=== PATIENT | female | born 2000 | race Caucasian/White ===

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

== ENCOUNTER 2022-02-24 10:05 | Emergency (ER) | payer OTHER, SELFPAY ==
[2022-02-24 10:37] VITALS: BP 115/67; PULSE 96; RESP 18; TEMP 37.2; O2SAT 100
[2022-02-24 10:38] VITALS: BP 115/67; PULSE 96; RESP 18; TEMP 37.2; O2SAT 100
--- NOTE | 2022-02-24 10:44 | ED.URI ---
HPI - URI/Sore Throat General Chief Complaint: Upper Respiratory Infection Stated Complaint: headache,cough,congestion Time Seen by Provider: 02/24/22 10:44 Source: patient, RN notes reviewed and old records reviewed Mode of arrival: ambulatory Limitations: no limitations History of Present Illness HPI Narrative: 21-year-old female presents to [facility] congestion since Saturday. Cough started Saturday. Denies fevers. Had taken [place] and a decongestant 1 time yesterday. No other treatment prior to arrival Related Data Allergies Allergy/AdvReac Type Severity Reaction Status Date / Time No Known Allergies Allergy Verified 02/24/22 10:37 Review of Systems Review of Systems: All systems reviewed & are unremarkable except as noted in HPI and below Constitutional: Constitutional: Reports no additional constitutional complaints Eyes: Eyes: Reports no additional eye complaints ENT: Reports as per HPI and Reports nasal congestion Cardiovascular: Cardiovascular: Reports no additional cardiovascular complaints, Denies chest pain and Denies dyspnea Respiratory: Respiratory: Reports as per HPI, Reports chest congestion, Reports cough and Denies dyspnea Gastrointestinal: Gastrointestinal: Reports no additional gastrointestinal complaints, Denies abdominal pain, Denies nausea and Denies vomiting Musculoskeletal: Musculoskeletal: Reports no additional musculoskeletal complaints Integumentary/Breasts: Skin/Breast: Reports system reviewed and no additional complaints, except as docu Neurologic: Reports system reviewed and no additional complaints, except as documented Psychiatric: Psychiatric: Reports no additional psychiatric complaints Allergic/Immunologic: Allergic/Immunologic: Reports no additional allergic/immunologic complaints PMFSH Past Medical History Medical History Acute non-recurrent maxillary sinusitis Allergies BMI 26.0-26.9,adult BMI 27.0-27.9,adult Ear pain Encounter to establish care Otitis media in diseases classified elsewhere, right ear Overweight (BMI 25.0-29.9) Seasonal allergies Trigger finger, right middle finger Surgical History Surgical History History of tympanoplasty Family History Family History Father Depression Anxiety Mother Anxiety Depression Social History Social History Smoking status: Never smoker Alcohol intake: never Substance use: never Substance use type: does not use Gender identity (if verbalized by the patient): Female Comments At the time of my signature, I reviewed and agree with the nursing past medical, surgical, social, and family history. There is no relevant family history pertinent to the patient complaint. Exam Const: General: cooperative, healthy appearing, comfortable, no acute distress, well developed, alert, average body habitus and well nourished Nutritional Appearance: average body habitus and well nourished Orientation/consciousness: patient oriented x3 Limitations: no limitations HENMT: Head: normal to inspection Ears: hearing grossly normal bilaterally and external ears normal Face/Nose/Sinus: Normal external nose present, Normal nares present, Normal nasal mucous membranes and turbinates present and normal facial exam Face and sinus: normal facial exam Mouth: Yes Normal oral and palatal mucosa present, Yes lip normal and Yes moist mucous membranes Throat: posterior oropharynx normal and uvula midline Eyes: General: appearance normal, both eyes and all related structures Alignment and Position: alignment normal Periorbital: periorbital findings normal Conjunctivae: conjunctivae normal Pupils: Equal, round and reactive pupils present EOM: EOMs intact bilaterally Neck: Neck: normal visual inspection, full
== END 2022-02-24 11:16 | disposition home or self-care (01) ==
PROVIDERS: Emergency Provider Nurse Practitioner; PCP Nurse Practitioner Family
DX: J06.9 Acute upper respiratory infection, unspecified (principal); Z20.822 Contact with and (suspected) exposure to COVID-19
CPT/HCPCS: 87426; 87804; 99213; C9803; G0463

== ENCOUNTER → 2022-04-13 12:27 | Outpatient (CLI) | payer OTHER, SELFPAY ==
--- NOTE | ~2022-04-13 | XR_ITS ---
EXAMINATION: XR shoulder LT min 2V DATE: 04/13/2022 12:53 INDICATION: Posterior left shoulder pain TECHNIQUE: AP internally and externally rotated, AP oblique externally rotated and axillary views of the left shoulder were obtained. COMPARISON: None FINDINGS: Normal alignment. No fracture. Glenohumeral joint is normal. Acromioclavicular joint is normal. Soft tissues are unremarkable. Visualized portion of the left lung are clear. IMPRESSION: Negative left shoulder radiographs. Reviewed, dictated and finalized at location B. ONNEL SECURITY ASSISTANT
--- NOTE | ~2022-04-13 | XR_ITS ---
EXAMINATION: [id number] DATE: 04/13/2022 12:55 INDICATION: Pleurodynia. Posterior left upper rib pain TECHNIQUE: A frontal inspiratory view of the chest and 3 views of the left ribs were obtained. COMPARISON: Chest radiograph dated 04/06/2020 FINDINGS: No rib fractures identified. No focal airspace opacities, pulmonary edema, pleural effusion or pneumo thorax. IMPRESSION: 1. No rib fracture or acute cardiopulmonary disease. Reviewed, dictated and finalized at location B. ANTY ADMINISTRATOR
== END ==
PROVIDERS: PCP Nurse Practitioner Family; Visit Provider Nurse Practitioner Family
DX: R07.81 Pleurodynia (principal); M25.512 Pain in left shoulder
CPT/HCPCS: 71101; 73030

== ENCOUNTER 2022-05-25 11:48 | Emergency (ER) | payer OTHER, SELFPAY ==
[2022-05-25 12:05] VITALS: BP 103/63; PULSE 77; RESP 16; TEMP 36.3; O2SAT 100
--- NOTE | 2022-05-25 12:21 | ED.URI ---
HPI - URI/Sore Throat General Chief Complaint: Upper Respiratory Infection Stated Complaint: sorerthroat,congestion Time Seen by Provider: 05/25/22 12:21 Source: patient, RN notes reviewed and old records reviewed Mode of arrival: ambulatory Limitations: no limitations History of Present Illness HPI Narrative: 21-year-old female presents to the [facility] with complaints of congestion x1 week and sore throat that started 2 days ago. 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 No treatment prior to arrival Related Data Home Medications Medication Instructions Recorded Confirmed levonorgestrel 17.5 mcg/24 hrs See Rx Instructions .Route .COMPLEX 05/25/22 05/25/22 (5yrs) 19.5mg intrauterine device (Kyleena) Allergies Allergy/AdvReac Type Severity Reaction Status Date / Time No Known Allergies Allergy Verified 05/25/22 12:09 Review of Systems Review of Systems: All systems reviewed & are unremarkable except as noted in HPI and below Constitutional: Constitutional: Reports no additional constitutional complaints Eyes: Eyes: Reports no additional eye complaints ENT: Reports as per HPI, Reports nasal congestion and Reports sore throat Cardiovascular: Cardiovascular: Reports no additional cardiovascular complaints, Denies chest pain and Denies dyspnea Respiratory: Respiratory: Reports no additional respiratory complaints, Denies chest congestion, Denies cough and Denies dyspnea Gastrointestinal: Gastrointestinal: Reports no additional gastrointestinal complaints, Denies abdominal pain, Denies nausea and Denies vomiting Musculoskeletal: Musculoskeletal: Reports no additional musculoskeletal complaints Integumentary/Breasts: Skin/Breast: Reports system reviewed and no additional complaints, except as docu Neurologic: Reports system reviewed and no additional complaints, except as documented Psychiatric: Psychiatric: Reports no additional psychiatric complaints Allergic/Immunologic: Allergic/Immunologic: Reports no additional allergic/immunologic complaints [facility] Past Medical History Medical History Acute non-recurrent maxillary sinusitis Acute otitis media, right Allergies BMI 26.0-26.9,adult BMI 27.0-27.9,adult Ear pain Encounter to establish care Left shoulder pain Otitis media in diseases classified elsewhere, right ear Overweight (BMI 25.0-29.9) Rib pain on left side Seasonal allergies Trigger finger, right middle finger Surgical History Surgical History History of tympanoplasty Family History Family History Father Depression Anxiety Mother Anxiety Depression Social History Social History Smoking status: Never smoker Alcohol intake: never Substance use: never Substance use type: does not use Lack of Transportation: No Lack of Food: Never True Current Housing: I Have Housing Concerned About Future Housing: No Difficulty Paying Gas/Electric Bills: No Difficulty Paying for Meds: No Currently Unemployed: No Education: Trade/Vocational Certificate Difficulty w/ Childcare or Family Care: No Occupation/Education: student Gender identity (if verbalized by the patient): Female Comments At the time of my signature, I reviewed and agree with the nursing past medical, surgical, social, and family history. There is no relevant family history pertinent to the patient complaint. Exam Const: General: cooperative, healthy appearing, comfortable, no acute distress, well developed, alert and well nourished Nutritional Appearance: well nourished Orientation/consciousness: patient oriented x3 Limitations: no limitations HENMT: Head: normal to inspection Ears: hearing grossly normal bam
== END 2022-05-25 12:40 | disposition home or self-care (01) ==
PROVIDERS: Emergency Provider Nurse Practitioner; PCP Nurse Practitioner Family
DX: J02.8 Acute pharyngitis due to other specified organisms (principal)
CPT/HCPCS: 87081; 87880; 99213; G0463

== ENCOUNTER 2022-06-20 11:27 | Emergency (ER) | payer OTHER, SELFPAY ==
--- NOTE | 2022-06-20 11:32 | ED.EAR ---
HPI - Ear Problem General Chief complaint: Upper Respiratory Infection Stated complaint: rt ear pain,congestion Time Seen by Provider: 06/20/22 11:39 Source: patient Mode of arrival: ambulatory Limitations: no limitations History of Present Illness HPI Narrative: 21 y/o female presented for c/o right ear pain for 3 days. States she hears 'thunder' when tilting her head. Pt has had problems with her ears since childhood, has had PE tubes and tympanoplasties in her Right ear twice with last surgery in the 5th grade. Endorses sinus congestion for 3 days with decreased taste. Taking Sudafed for symptoms. Also reports 'stomach flu' 4 days ago. Denies tinnitus, dizziness, body aches, sob, wheezing, n/v/d/f/c at this time. 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 MD Complaint: ear pain Related Data Home Medications Medication Instructions Recorded Confirmed levonorgestrel 17.5 mcg/24 hrs See Rx Instructions .Route .COMPLEX 05/25/22 06/20/22 (5yrs) 19.5mg intrauterine device (Kyleena) Allergies Allergy/AdvReac Type Severity Reaction Status Date / Time No Known Allergies Allergy Verified 06/20/22 11:42 Review of Systems Review of Systems: ROS per HPI All systems reviewed & are unremarkable except as noted in HPI and below PMFSH Past Medical History Medical History Acute non-recurrent maxillary sinusitis Acute otitis media, right Allergies BMI 26.0-26.9,adult BMI 27.0-27.9,adult Ear pain Encounter to establish care Left shoulder pain Otitis media in diseases classified elsewhere, right ear Overweight (BMI 25.0-29.9) Rib pain on left side Seasonal allergies Trigger finger, right middle finger Surgical History Surgical History History of tympanoplasty Family History Family History Father Depression Anxiety Mother Anxiety Depression Social History Social History Smoking status: Never smoker Alcohol intake: never Substance use: never Substance use type: does not use Lack of Transportation: No Lack of Food: Never True Current Housing: I Have Housing Concerned About Future Housing: No Difficulty Paying Gas/Electric Bills: No Difficulty Paying for Meds: No Currently Unemployed: No Education: Trade/Vocational Certificate Difficulty w/ Childcare or Family Care: No Occupation/Education: student Gender identity (if verbalized by the patient): Female Comments At time of signature, agree with nursing past medical, surgical, social and family history. There is no relevant family history pertinent to the presenting complaint Exam Narrative: GENERAL: Well-appearing, well-nourished, and in no acute distress. HEAD: Normocephalic EYES: PERRLA, conjunctivae clear ENT: Nares clear. Mucous membranes moist. Nasal congestion. Left TM pearly beavers with dull light reflex; Right TM erythematous with purulent effusion, no tragal tenderness. Oropharynx without erythema or tonsillar enlargement. NECK: Supple. No lymphadenopathy CHEST: Clear to auscultation, breath sounds equal. HEART: Regular rate and rhythm. No murmur heard. SKIN: Warm, dry, no rash. NEURO: Alert and oriented x3. PSYCH: Normal mood and affect Course Course Emergency Course: Patient is aware of diagnosis, understands and agrees to treatment plan. Anticipatory guidance given. Patient agrees to follow-up as directed and is aware of reasons to seek care at the emergency department. Portions of this record may have been created with voice recognition software Level of Care: Express Care Visit Vital Signs Vital signs: Vital Signs Temperature 97.6 F 06/20/22 11:34 Pulse Rate 90 06/20/22 11:34 Respiratory Rate 16 06/20/22 11:34 Blood Pressure 110/63 06/20/22 11:34
[2022-06-20 11:34] VITALS: BP 110/63; PULSE 90; RESP 16; TEMP 36.4; O2SAT 99
== END 2022-06-20 12:16 | disposition home or self-care (01) ==
PROVIDERS: Emergency Provider Nurse Practitioner Family; PCP Nurse Practitioner Family
DX: H66.91 Otitis media, unspecified, right ear (principal); Z20.822 Contact with and (suspected) exposure to COVID-19
CPT/HCPCS: 87426; 99213; C9803; G0463

== ENCOUNTER 2022-06-25 08:00 | Outpatient (RCR) | payer OTHER, SELFPAY ==
--- NOTE | 2022-04-30 11:54 | PTOPEVAL1 ---
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 She is R handed. Reports some tingling with the pain, but no numbness or weakness. Prior to therapy saw a doctor and they thought it was a rib out of place. Reported Pain Level Pain Score 4: Self Report Assessment PT Clinical Summary Mahogany is a 21 year old female coming into the clinic with L shoulder/scapular pain. She presents with weakness in her scapular stabilizers along with her rotator cuff. She has grossly 10 degrees less active range of motion in her L shoulder compared to her R shoulder. She has a positive empty can and Fitzpatrick-Semaj test. Physical therapy will work on improving strength and range of motion of the L shoulder joint along with manual and modalities to help with pain control. Plan of Care Interventions Electrical Stimulation,Gait Training,Hot Pack/Cold Pack,Manual Therapy,Neuro Re-education,Patient/ Caregiver Education,Therapeutic Activities, Therapeutic Exercise,Ultrasound Other Interventions taping PT Services Indicated Yes Treatment Frequency and 1-2x/week for 4 weeks Duration These treatments will address the objective and functional deficits as defined above. The patient will be advanced safely and appropriately in order for the patient to progress towards his/her prior level of function. Additional exercises will be introduced and as well as a comprehensive home exercise program upon discharge, if needed, ?to ensure carryover of functional gains achieved in the clinic. This treatment plan has been reviewed and agreement upon by the patient.
--- NOTE | 2022-05-28 10:25 | PTOPREEVAL ---
Assessment and note entered by Martin Siegel, PT Evaluation Information Assessment Status Re-evaluation Diagnosis Pain in left shoulder Onset chronic three years ago Subjective Information Patient reports she is still having issues with the shoulder mainly discomfort after in the same position for extended period of time. 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 Reported Pain Level Pain Score 5: Self Report Assessment PT Clinical Summary Mahogany is a 21 year old coming in with L shoulder pain. She has met her shoulder strengthening goal , but still needs to get stronger in her her scapula and improve range of motion. Her pain although she reports it feeling better is at a higher level than reported in the initial evaluation. Patient states her doctor mentioned getting an MRI, which this therapist would recommend to make sure we are focused in the right area and providing the correct therapy plan of care. Recommend further therapy to work on scapular strengthening and shoulder range of motion along with modalities and manual therapy for pain control. Plan of Care Interventions Electrical Stimulation,Gait Training,Hot Pack/Cold Pack,Manual Therapy,Neuro Re-education,Patient/ Caregiver Education,Therapeutic Activities, Therapeutic Exercise,Ultrasound Other Interventions taping PT Services Indicated Yes These treatments will address the objective and functional deficits as defined above. The patient will be advanced safely and appropriately in order for the patient to progress towards his/her prior level of function. Additional exercises will be introduced and as well as a comprehensive home exercise program upon discharge, if needed, ?to ensure carryover of functional gains achieved in the clinic. This treatment plan has been reviewed and agreement upon by the patient.
--- NOTE | 2022-06-13 08:58 | PCPTNOTE ---
Patient unable to be seen on 06/12/22 secondary to staff sickness.
--- NOTE | 2022-06-25 08:45 | PTOPDC ---
Assessment and note entered by Martin Siegel, PT Evaluation Information Assessment Status Discharge Diagnosis Pain in L shoulder Onset chronic three years ago Subjective Information Patient reports feeling better overall, but still having issues. 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 Wishes to try to get an MRI to better understand what is going on with the shoulder as it is still giving her troubles and feeling like it grinds a lot. Reported Pain Level Pain Score 1: Self Report Assessment PT Clinical Summary Mahogany is a 21 year old female coming into the clinic with a diagnosis of L shoulder pain. She was evaluated on 04/30/22 and attended 14 visits. She was unable to meet her pain, strength or shoulder flexion goals, but met her shoulder abduction range of motion and work goals. I think the patient's request for an MRI appears like a good idea to see what is preventing further improvement and if possible see about how to focus further physical therapy treatments if warranted, but for now discharge from skilled physical therapy with HEP and get MRI if okay with doctor. Plan of Care PT Services Indicated No
== END 2022-06-25 10:53 | disposition home or self-care (01) ==
LOC: ANHPT 08:00
PROVIDERS: PCP Nurse Practitioner Family; Visit Provider Nurse Practitioner Family
DX: M25.512 Pain in left shoulder (principal)
CPT/HCPCS: 97014; 97110; 97112; 97140; 97161; G0283

== ENCOUNTER 2022-10-08 13:05 | Outpatient (CLI) | payer OTHER, SELFPAY ==
[2022-10-08 14:10] LABS: Alanine Aminotransferase 20 U/L (6-35); Albumin Level 4.3 g/dL (3.5-5.1); Alkaline Phosphatase 38 U/L (38-126); Anion Gap 5 mmol/L (8-16); Aspartate Amino Transferase 31 U/L (14-36); Bilirubin,Total 0.3 mg/dL (0.2-1.3); Blood Urea Nitrogen 8 mg/dL (7-17); Calcium 8.8 mg/dL (8.4-10.2); Carbon Dioxide 30 mmol/L (22-30); Chloride 102 mmol/L (98-107); Estimated Glomerular Filt Rate > 60; Glucose 95 mg/dL (65-110); Potassium 3.9 mmol/L (3.4-5.0); Sodium 137 mmol/L (137-145)
[2022-10-08 15:25] LABS: Hematocrit 40.2 % (37.0-47.0); Hemoglobin 12.8 g/dL (12.0-15.0); Mean Corpuscular HGB Conc 31.8 g/dl (32-36); Mean Corpuscular Hemoglobin 29.4 pg (26-34); Mean Corpuscular Volume 92.2 fl (80-100); Mean Platelet Volume 11.3 fl (7.4-10.4); Platelet Count Result 272 k/mm3 (150-375); Red Blood Count 4.36 M/mm3 (4.2-5.4); White Blood Count 7.2 K/mm3 (4.5-10.0)
== END 2022-10-08 13:06 | disposition home or self-care (01) ==
LOC: ANHLAB 13:08
PROVIDERS: PCP Nurse Practitioner Family; Visit Provider Nurse Practitioner Family
DX: K59.00 Constipation, unspecified (principal); K92.1 Melena
CPT/HCPCS: 36415; 80053; 84443; 85027

== ENCOUNTER 2022-10-22 00:27 | Day surgery (SDC) | payer OTHER, SELFPAY ==
[2022-10-10 14:51] VITALS: BMI 26.5
[2022-10-22 11:18] VITALS: BP 110/66; PULSE 86; RESP 16; TEMP 36.3; O2SAT 100
--- NOTE | 2022-10-22 11:53 | PM.HPGS ---
History of Present Illness History of Present Illness Consent: Risks, benefits, and alternatives have been discussed and questions answered. Patient agrees to proceed with procedure. Chief complaint: constipation, melena Narrative: Mahogany Ambriz is a 22 year old female Who is here for investigation of rectal bleeding. She has long history of having difficulty with constipation. Frequently she will pass blood and at times has rectal discomfort with that. Review of Systems Review of Systems: All systems reviewed & are unremarkable except as noted in HPI and below PMFSH Past Medical History Medical History Acute non-recurrent maxillary sinusitis Acute otitis media, right Allergies Blood in stool BMI 26.0-26.9,adult BMI 27.0-27.9,adult Constipation Ear pain Encounter to establish care Left shoulder pain Otitis media in diseases classified elsewhere, right ear Overweight (BMI 25.0-29.9) Rib pain on left side Seasonal allergies Trigger finger, right middle finger Surgical History Surgical History History of tympanoplasty Family History Family History Father Depression Anxiety Mother Anxiety Depression Social History Social History Smoking status: Never smoker Alcohol intake: never Substance use: never Substance use type: does not use Lack of Transportation: No Lack of Food: Never True Current Housing: I Have Housing Concerned About Future Housing: No Difficulty Paying Gas/Electric Bills: No Difficulty Paying for Meds: No Currently Unemployed: No Education: Trade/Vocational Certificate Difficulty w/ Childcare or Family Care: No Living arrangements: with family Occupation/Education: student Gender identity (if verbalized by the patient): Female Spiritual care concerns: No Meds Home Medications and Allergies Home Medications Medication Instructions Recorded Confirmed Type cetirizine 10 mg tablet (Zyrtec) 10 mg PO DAILY PRN Allergy Symptoms 10/15/22 10/22/22 History Allergies Allergy/AdvReac Type Severity Reaction Status Date / Time No Known Allergies Allergy Verified 10/22/22 11:17 Vital Signs Vital Signs - 24 hr 10/22/22 11:18 Temperature 36.3 C L Pulse Rate 86 Respiratory Rate 16 Blood Pressure 110/66 Pulse Oximetry 100 Oxygen Delivery Room Air Exam Const: General: alert Orientation/consciousness: patient oriented x3 Resp: Auscultation: clear to auscultation bilaterally Cardio: Rhythm: regular rhythm GI: GI Palp: Yes Soft to palpation and No Tenderness to palpation present (GI) Neuro: General: patient oriented x3 Assessment and Plan Assessment and plan (1) Blood in stool: Code(s): K92.1 - Melena Status: Acute Assessment and Plan: Colonoscopy with possible biopsy or polypectomy or cautery or injection of substances.
[2022-10-22] MEDS: LACTATED RINGERS 1,000 ML 150 ML IV CONT (12:00)
--- NOTE | 2022-10-22 12:53 | WPDANESEPPF ---
Anes - Initial Pre Proc Eval Procedure: Operation Date: 10/22/22 12:30 Proposed Procedures p Colonoscopy - Alejandro Draper MD Date/Time: 10/22/22 12:53 Surgeon: Alejandro Draper MD Pre Op Diagnosis: constipation, melena Patient Data Age: 22 Gender: F Height: 1.61 m Weight: 69.1 kg Last Vital Signs Temp 36.3 C L 10/22/22 11:18 Pulse 86 10/22/22 11:18 Resp 16 10/22/22 11:18 BP 110/66 10/22/22 11:18 Pulse Ox 100 10/22/22 11:18 O2 Del Method Room Air 10/22/22 11:18 Allergies Allergy/AdvReac Type Severity Reaction Status Date / Time No Known Allergies Allergy Verified 10/22/22 11:17 Home Medications Medication Instructions Recorded Confirmed Type cetirizine 10 mg tablet (Zyrtec) 10 mg PO DAILY PRN Allergy Symptoms 10/15/22 10/22/22 History Patient hx anesthesia problems: none Family hx anesthesia problems: none Results Review: All pre-operative results and documents have been reviewed as part of the pre-operative evaluation. [facility] Past Medical History Medical History Acute non-recurrent maxillary sinusitis Acute otitis media, right Allergies Blood in stool BMI 26.0-26.9,adult BMI 27.0-27.9,adult Constipation Ear pain Encounter to establish care Left shoulder pain Otitis media in diseases classified elsewhere, right ear Overweight (BMI 25.0-29.9) Rib pain on left side Seasonal allergies Trigger finger, right middle finger Surgical History Surgical History History of tympanoplasty Family History Family History Father Depression Anxiety Mother Anxiety Depression Social History Social History Smoking status: Never smoker Alcohol intake: never Substance use: never Substance use type: does not use Lack of Transportation: No Lack of Food: Never True Current Housing: I Have Housing Concerned About Future Housing: No Difficulty Paying Gas/Electric Bills: No Difficulty Paying for Meds: No Currently Unemployed: No Education: Trade/Vocational Certificate Difficulty w/ Childcare or Family Care: No Living arrangements: with family Occupation/Education: student Gender identity (if verbalized by the patient): Female Spiritual care concerns: No Anes - Eval Final PreProcedure Day of Procedure 10/22/22 12:53 Patient weight: overweight Heart: regular rate and rhythm Lungs: clear to auscultation Airway: Mallampati scale class II Neurological: alert and oriented Last oral intake: >/= 8 hours ASA classification: II Emergent: no Anesthetic plan: proceed Anesthesia type and monitoring: general GIVS and standard monitoring Results Review: All pre-operative results and documents have been reviewed as part of the pre-operative evaluation. Informed Consent: The patient's anesthetic plan and its attendant risks and benefits were discussed with the patient/family/POA. Questions were solicited and answers provided to the satisfaction of the patient/family/POA.
[2022-10-22 13:13] VITALS: BP 91/50; PULSE 90; RESP 16; O2SAT 100
[2022-10-22 13:23] VITALS: BP 101/66; PULSE 73; RESP 15; O2SAT 100
[2022-10-22 13:33] VITALS: BP 105/62; PULSE 72; RESP 14; O2SAT 100
== END 2022-10-22 13:48 | disposition home or self-care (01) ==
PROVIDERS: PCP Nurse Practitioner Family; Visit Provider Internal Medicine Gastroenterology
PROC: 0DJD8ZZ Inspection of Lower Intestinal Tract, Via Natural or Artificial Opening Endoscopic (ICD-10-PCS; CPT 45378; principal; 2022-10-22 12:30)
DX: K64.8 Other hemorrhoids (principal); K59.00 Constipation, unspecified; K92.1 Melena
CPT/HCPCS: 45378; J2704; J7120

== ENCOUNTER 2022-11-02 18:36 | Emergency (ER) | payer OTHER, SELFPAY ==
--- NOTE | 2022-11-02 18:42 | ED.URI ---
HPI - URI/Sore Throat General Chief Complaint: Ear Stated Complaint: rt ear pain Time Seen by Provider: 11/02/22 18:42 Source: patient, RN notes reviewed and old records reviewed Mode of arrival: ambulatory Limitations: no limitations History of Present Illness HPI Narrative: 22-year-old female presents to the [facility] with complaints of right ear pain for 1 week. Has been taking Zyrtec intermittently. No other treatment prior to arrival. Denies any other symptoms Related Data Home Medications Medication Instructions Recorded Confirmed cetirizine 10 mg tablet (Zyrtec) 10 mg PO DAILY PRN Allergy Symptoms 10/15/22 11/02/22 Allergies Allergy/AdvReac Type Severity Reaction Status Date / Time No Known Allergies Allergy Verified 11/02/22 18:50 Review of Systems Review of Systems: All systems reviewed & are unremarkable except as noted in HPI and below Constitutional: Constitutional: Reports no additional constitutional complaints Eyes: Eyes: Reports no additional eye complaints ENT: Reports as per HPI and Reports otalgia (Right) Cardiovascular: Cardiovascular: Reports no additional cardiovascular complaints, Denies chest pain and Denies dyspnea Respiratory: Respiratory: Reports no additional respiratory complaints, Denies chest congestion, Denies cough and Denies dyspnea Gastrointestinal: Gastrointestinal: Reports no additional gastrointestinal complaints, Denies abdominal pain, Denies nausea and Denies vomiting Musculoskeletal: Musculoskeletal: Reports no additional musculoskeletal complaints Integumentary/Breasts: Skin/Breast: Reports system reviewed and no additional complaints, except as docu Neurologic: Reports system reviewed and no additional complaints, except as documented Psychiatric: Psychiatric: Reports no additional psychiatric complaints Allergic/Immunologic: Allergic/Immunologic: Reports no additional allergic/immunologic complaints [facility] Past Medical History Medical History Acute non-recurrent maxillary sinusitis Acute otitis media, right Allergies Blood in stool BMI 26.0-26.9,adult BMI 27.0-27.9,adult Constipation Ear pain Encounter to establish care Left shoulder pain Otitis media in diseases classified elsewhere, right ear Overweight (BMI 25.0-29.9) Rib pain on left side Seasonal allergies Trigger finger, right middle finger Surgical History Surgical History History of tympanoplasty Family History Family History Father Depression Anxiety Mother Anxiety Depression Social History Social History Smoking status: Never smoker Alcohol intake: never Substance use: never Substance use type: does not use Lack of Transportation: No Lack of Food: Never True Current Housing: I Have Housing Concerned About Future Housing: No Difficulty Paying Gas/Electric Bills: No Difficulty Paying for Meds: No Currently Unemployed: No Education: Trade/Vocational Certificate Difficulty w/ Childcare or Family Care: No Living arrangements: with family Occupation/Education: student Gender identity (if verbalized by the patient): Female Spiritual care concerns: No Comments At the time of my signature, I reviewed and agree with the nursing past medical, surgical, social, and family history. There is no relevant family history pertinent to the patient complaint. Exam Const: General: cooperative, healthy appearing, comfortable, no acute distress, well developed, alert and well nourished Nutritional Appearance: well nourished Orientation/consciousness: patient oriented x3 Limitations: no limitations HENMT: Head: normal to inspection Ears: hearing grossly normal bilaterally, external ears normal, EAC's normal and TM abnormal bulging, erythematou
[2022-11-02 18:43] VITALS: BP 118/73; PULSE 83; RESP 18; TEMP 36.2; O2SAT 100
== END 2022-11-02 18:54 | disposition home or self-care (01) ==
PROVIDERS: Emergency Provider Nurse Practitioner; PCP Nurse Practitioner Family
DX: H66.91 Otitis media, unspecified, right ear (principal)
CPT/HCPCS: 99213; G0463

== ENCOUNTER 2022-11-05 08:31 | Outpatient (CLI) | payer OTHER, SELFPAY ==
--- NOTE | ~2022-11-05 | MR_ITS ---
EXAMINATION: MR thoracic spine wo con DATE: 11/05/2022 09:17 INDICATION: Dorsalgia, unspecified. TECHNIQUE: Magnetic resonance imaging (MRI) of the thoracic spine was performed without intravenous c ontrast. COMPARISON: None FINDINGS: Bone alignment is normal. There is mild chronic anterior wedging of T7, T8, and T9 vertebra l bodies. There is mildly decreased disc height at T7-T8 and T8-T9. The discs do not extend beyond th e endplate margins. The facet joints are normal. No neural foraminal stenosis or central canal stenos is. The spinal cord signal intensity is normal. The conus medullaris is at T12-L1. IMPRESSION: 1. Mild thoracic spondylosis. Reviewed, dictated and finalized at location A.
== END 2022-11-05 08:32 | disposition home or self-care (01) ==
PROVIDERS: PCP Nurse Practitioner Family; Visit Provider Nurse Practitioner
DX: M47.894 Other spondylosis, thoracic region (principal)
CPT/HCPCS: 72146

== ENCOUNTER 2023-05-08 11:48 | Outpatient (CLI) | payer OTHER, SELFPAY ==
[2023-05-08 12:38] LABS: Basophils Percent Auto 0.8 % (0.2-1.2); Eosinophils Absolute Auto 0.2 K/mm3 (0-0.3); Eosinophils Percent Auto 3.5 % (0-4.4); Hematocrit 41.9 % (37.0-47.0); Hemoglobin 13.3 g/dL (12.0-15.0); Immature Granulocyte Absolute 0.01 K/mm3 (0.00-0.031); Immature Granulocyte Percent A 0.2 % (0-0.5); Lymphocytes Absolute Auto 1.87 K/mm3 (0.9-3.2); Lymphocytes Percent Auto 36.2 % (18.3-44.2); Mean Corpuscular HGB Conc 31.7 g/dl (32-36); Mean Corpuscular Hemoglobin 29.3 pg (26-34); Mean Corpuscular Volume 92.3 fl (80-100); Mean Platelet Volume 10.9 fl (7.4-10.4); Monocytes Absolute Auto 0.5 K/mm3 (0.1-0.6); Monocytes Percent Auto 9.1 % (2.6-8.5); Neutrophils Absolute Auto 2.6 K/mm3 (1.3-6.7); Neutrophils Percent Auto 50.2 % (45.5-73.1); Platelet Count Result 284 k/mm3 (150-375); Red Blood Count 4.54 M/mm3 (4.2-5.4); Red Cell Distribution Width 13.2 % (11.5-14.5); White Blood Count 5.2 K/mm3 (4.5-10.0)
[2023-05-08 12:58] LABS: Iron 146 ug/dL (37-170)
[2023-05-08 13:10] LABS: Percent Iron Saturation 41 % (20-50)
[2023-05-08 13:29] LABS: Thyroid Stimulating Hormone Reflex 0.993 uIU/mL (0.465-4.68)
[2023-05-13 08:42] LABS: ANA Cascade Screen Negative (Negative)
[2023-05-13 14:20] LABS: CRP, High Sensitivity 2.3 mg/L (***)
== END 2023-05-08 11:49 | disposition home or self-care (01) ==
PROVIDERS: PCP Nurse Practitioner Family; Visit Provider Nurse Practitioner Family
DX: L65.9 Nonscarring hair loss, unspecified (principal)
CPT/HCPCS: 36415; 82728; 83540; 83550; 84443; 85025; 86038; 86141; 86225; 86235; 86364

== ENCOUNTER 2023-08-13 09:10 | Emergency (ER) | payer SELFPAY ==
--- NOTE | 2023-08-13 09:17 | ED.SKABFB ---
HPI - Skin/Abscess/Foreign Bdy General Chief complaint: Skin/Abscess/Foreign Body Stated complaint: bee sting bottom of rt foot Time Seen by Provider: 08/13/23 09:17 Source: patient Mode of arrival: ambulatory Limitations: no limitations History of Present Illness HPI narrative: Cheryl is a 22-year-old female patient presenting to the clinic today with complaints of a bee sting to the bottom of her right foot that occured yesterday. She reports after being stung she had some nausea and vomiting. States that she is having increased pain and swelling to the bottom of her right foot. Denies any fever or body aches patient did have some chills. Heart rate is 129 in the office today but patient states elevated heart rate is normal for her. She denies any difficulty swallowing, breathing, chest pain, or shortness of breath. Does feel nauseous right now. Related Data Home Medications Medication Instructions Recorded Confirmed cetirizine 10 mg tablet (Zyrtec) 10 mg PO DAILY PRN Allergy Symptoms 10/15/22 08/13/23 multivitamin 1 tablet PO DAILY 05/08/23 08/13/23 Allergies Allergy/AdvReac Type Severity Reaction Status Date / Time No Known Allergies Allergy Verified 08/13/23 09:25 Review of Systems Review of Systems: Pertinent positives per HPI. Patient denies any fever, chills, rash, headache, visual changes, dizziness, cough, runny nose, sore throat, shortness of breath, chest pain, palpitations, diarrhea, constipation, abdominal pain, or any urinary issues. PMFSH Past Medical History Medical History Acute non-recurrent maxillary sinusitis Acute otitis media, right Allergies Anxiety Blood in stool BMI 26.0-26.9,adult BMI 27.0-27.9,adult Constipation Ear pain Encounter to establish care Hair loss Left shoulder pain Otitis media in diseases classified elsewhere, right ear Otitis media of right ear Overweight (BMI 25.0-29.9) Rash Rib pain on left side Seasonal allergies Traction alopecia Trigger finger, right middle finger Surgical History Surgical History History of tympanoplasty Family History Family History Father Depression Anxiety Mother Anxiety Depression Thyroid disorder Grandparent Thyroid disorder Grandparent Hypertension Social History Social History Smoking status: Never smoker Alcohol intake: never Substance use: never Substance use type: does not use Lack of Transportation: No Lack of Food: Never True Current Housing: I Have Housing Concerned About Future Housing: No Difficulty Paying Gas/Electric Bills: No Difficulty Paying for Meds: No Currently Unemployed: No Education: Trade/Vocational Certificate Difficulty w/ Childcare or Family Care: No Living arrangements: with family Occupation/Education: student Gender identity (if verbalized by the patient): Female Spiritual care concerns: No Comments At the time of my signature, I reviewed and agree with the nursing past medical, surgical, social, and family history. There is no relevant family history pertinent to the patient complaint. Exam Narrative: General: Well-developed, well nourished, in no apparent distress Head: Normocephalic, atraumatic. Cardio: Regular rate and rhythm, s1 and s2 normal, no murmur appreciated. Resp: Clear to auscultation bilaterally, no rhonchi, rales, wheezing or rubs. Integumentary: [place], warm, and dry, insect sting to the right plantar aspect of the arch with localized redness, swelling, and itching Course Course Emergency Course: Portions of this record may have been created with voice recognition software. Level of Care: Express Care Visit Vital Signs Vital signs: Vital signs reviewed MDM - Skin/Abscess/Foreign
[2023-08-13 09:19] VITALS: BP 103/67; PULSE 129; RESP 16; TEMP 36.5; O2SAT 98
== END 2023-08-13 09:29 | disposition home or self-care (01) ==
PROVIDERS: Emergency Provider Nurse Practitioner Family; PCP Nurse Practitioner Family
DX: T63.441A Toxic effect of venom of bees, accidental (unintentional), initial encounter (principal)
CPT/HCPCS: 99213; G0463

== ENCOUNTER 2024-05-08 08:14 | Outpatient (CLI) | payer SELFPAY ==
--- OUTSIDE RECORDS SUMMARY | 2024-05-08 08:48 | XMS_ITS ---
Author Organization [facility] [employer] [employer] Address [address] [facility] [address] [facility] [address] [address] Care Team Providers Care Manager Mba Name Role Phone Unavailable Primary Care Physician Unavailab le Medications Name Start Date Expiration Date SIG Comments ParaGard T [id number] 380 square mm intrauterine device 07/06/2022 07/07/2022 place 1 device by intrauterine route once Payers Insurance Name Company Name Plan Name Plan Number Policy Number Policy Group Number Start Date [facility] [id number] N/A History of Encounters Visit Date Visit Type Provider 07/06/2022 [employer] Tele-Med Consult Dr. Serafin Myers MD
--- OUTSIDE RECORDS SUMMARY | 2024-05-08 08:48 | XMS_ITS | Clinical Summary ---
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 Gender Identity Not on file Sexual Orientation Not on file Last Filed Vital Signs Vital Sign Reading Time Taken Comments Blood Pressure 104/63 07/03/2023 5:26 PM CDT Pulse 65 07/03/2023 5:26 PM CDT Temperature 36.6 C (97.8 F) 07/03/2023 3:11 PM CDT Respiratory Rate 16 07/03/2023 5:26 PM CDT Oxygen Saturation 98% 07/03/2023 5:26 PM CDT Inhaled Oxygen Concentration - - Weight 64.4 kg (142 lb) 07/03/2023 3:11 PM CDT Height 161.3 cm (5' 3.5 ) 07/03/2023 3:11 PM CDT Body Mass Index 24.76 07/03/2023 3:11 PM CDT Plan of Treatment Health Maintenance Due Date Last Done Comments Cervical Cancer Screening Pap Smear (Age 21 to 29) Every 3 Years 2002 Cervical Cancer Screening 2002 Annual Physical 2005 Meningococcal B Vaccine (1 of 2 - Standard) 2018 Hepatitis C 2020 DTaP, Tdap and Td Vaccines (7 - Td or Tdap) 11/03/2023 11/02/2013, 08/25/2007, 05/26/2004, Additional history exists COVID-19 Vaccine ( season) 2023 02/27/2021, 07/29/2020, 07/08/2020 Influenza Adult (#1) 2023 01/09/2023, 12/29/2021, 01/02/2021, Additional history exists Hepatitis B Vaccines Completed 07/20/2003, 03/16/2003, 2002, Additional history exists Pneumococcal Vaccine: Pediatrics (0 to 5 Years) and At-Risk Patients (6 to 64 Years) Aged Out 04/11/2004, 03/16/2003, 2002, Additional history exists No longer eligible based on patient's age to complete this topic HPV Vaccines Completed 11/03/2015, 11/01/2014 Meningococcal Vaccine Completed 11/24/2018, 014 RSV Immunizations Under 20 Months Aged Out No longer eligible based on patient's age to complete this topic Insurance [employer] Care Teams Wiping Rag Washer Relationship Specialty Start Date End Date Clari Tom APNP [address] [phone] PCP - General Nurse Practitioner Family 07/03/23
--- OUTSIDE RECORDS SUMMARY | 2024-05-08 08:48 | XMS_ITS | Referral Summary ---
Author Organization [facility] Pickup Services Address [address] [place] [address] Care Team Providers Care Instrument And Electrical Technician Name Role Phone Unavailable Primary Care Provider Unavailabl e Source Comments [facility],non-owned Affiliates and Associated Physician Practices is amultiple site organization consisting of ambulatory clinics and hospital sitesin [place], [place], [place] and [place]. This disclosure is being madepursuant to the Care Everywhere program and may not contain all information available regarding this patient. Last updated 17.[facility] Allergies No known active allergies Medications Be aware that medications may not be up to date on this document. Always verify current medications with the patient. No known medications Active Problems Problem Noted Date Diagnosed Date Anxiety and depression 01/09/2018 Back pain 11/15/2017 Tympanic membrane perforation 06/20/2010 Screening for condition Overview (12/16/2014): Pediatric Screening Measures Metabolic Screen Date: N/A Result: WNL Hearing Screen Date: N/A Result: WNL Immunizations Name Administration Dates Next Due INFLUENZA VACCINE, TRIV. (AF LURIA, FLUZONE TRIVALENT; 6MO+) (IIV3) 12/28/2010,01/20/2010 Covid Hopela primary monoval ent 12+ yr 0.3mL Purple cap 07/29/2020,07/08/2020 DTaP VACCINE IM (6wk-6yrs) 08/25/2007,,03/16/2003,12/30,2002 FLU VACCINE TRI IIV3 SPLIT P F IM (FLUVIRIN) 01/13/2013 HEP A PEDS 2 DOSE 11/24/2018,11/03/2015 HEP B VACCINE, PED/ADOL 07/20/2003,03/16/2003, HIB BOOSTER 04/11/2004, 3,2002,10/20 Human Papilloma Virus Nineva lent Vaccine 11/03/2015 Human Papilloma Virus Dimas valent Vaccine 11/01/2014 INFLUENZA VACCINE 01/20/2008, 8,01/07/2007,04/07,12/08/2004 INFLUENZA VACCINE, QUADR. (F LUZONE; FLULAVAL; FLUARIX; AFLURIA QUADRIVALENT; 6MO+), 0.5 ML (IIV4) 01/02/2021,12/15/2019,11/24/2018,12/04,02/19/2017,01/12/2014 MENINGOCOCCAL CONJUGATE (MCV4P) 11/24/2018,11/02 MMR 08/25/2007,09/30/2003 PNEUMOCOCCAL CONJ, PEDS 04/11/2004,03/16,2002,10/20 POLIO IPV 08/25/2007, 5,2002,10/20 TDAP (7yrs+) 11/02/2013 VARICELLA 08/25/2007,05/26/2004 Social History Tobacco Use Types Packs/Day Years Used Date Smoking Tobacco: Passive Smo ke Exposure - Never Smoker Smokeless Tobacco: Never Alcohol Use Standard Drinks/Week Comments No 0 (1 standard drink = 0.6 oz pur e alcohol) PHQ-2 Answer Date Recorded PHQ2 TOTAL SCORE 2 01/02/2021 Sex and Gender Information Value Date Recorded Sex Assigned at Not on file Gender Identity Not on file Sexual Orientation Not on file Last Filed Vital Signs Vital Sign Reading Time Taken Comments Blood Pressure 110/73 01/02/2021 10:27 AM CDT Pulse 81 12/15/2019 1:30 PM CDT Temperature 36.4 C (97.6 F) 01/02/2021 10:27 AM CDT Respiratory Rate - - Oxygen Saturation 97% 02/26/2019 9:32 AM 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 Author Use safety retraint in car Lifestyle On track( 020 1:30 PM CDT) Maira Poole, RN Administered Medications JODI AVELAR Personal/Family [address] [place] [address]
--- OUTSIDE RECORDS SUMMARY | 2024-05-08 08:48 | XMS_ITS | Patient Health Summary ---
Author Organization [facility] Address [address] [place] [address] Care Team Providers Care Private Tutor Name Role Phone Unavailable Primary Care Provider Unavailabl e Note from [facility],non-owned Affiliates and Associated Physician Practices is amultiple site organization consisting of ambulatory clinics and hospital sitesin [place], [place], [place] and [place]. This disclosure is being madepursuant to the Care Everywhere program and may not contain all information available regarding this patient. Last updated 17.[facility] Allergies No known active allergies* Amoxicillin(Rash),Inactive Medications Be aware that medications may not be up to date on this document. Always verify current medications with the patient. No known medications Active Problems Problem Noted Date Diagnosed Date Anxiety and depression 01/09/2018 Back pain 11/15/2017 Tympanic membrane perforation 06/20/2010 Screening for condition Immunizations * INFLUENZA VACCINE, TRIV. (AFLURIA, FLUZONE TRIVALENT; 6MO+) (IIV3)(Given 12/28/2010, 01/20/2010) * Covid Pfizer primary monovalent 12+ yr 0.3mL Purple cap(Given 07/29/2020, 07/08/2020) * DTaP VACCINE IM (6wk-6yrs)(Given 08/25/2007, 05/26/2004, 03/16/2003, 2002, 2002) * FLU VACCINE TRI IIV3 SPLIT PF IM (FLUVIRIN)(Given 01/13/2013) * HEP A PEDS 2 DOSE(Given 11/24/2018, 11/03/2015) * HEP B VACCINE, PED/ADOL(Given 07/20/2003, 03/16/2003, 2002) * HIB BOOSTER(Given 04/11/2004, 03/16/2003, 2002, 2002) * Human Papilloma Virus Ninevalent Vaccine(Given 11/03/2015) * Human Papilloma Virus Quadrivalent Vaccine(Given 11/01/2014) * INFLUENZA VACCINE(Given 01/20/2008, 06/09/2007, 01/07/2007, 04/07/2005, 12/08/2004) * INFLUENZA VACCINE, QUADR. 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 EXTRACTOR Inhaled Oxygen Concentration - - Weight 70.6 kg (155 lb 9.6 oz) 01/02/2021 10:27 AM CDT Height 169.5 cm (5' 6.73 ) 01/02/2021 10:27 AM C DT Body Mass Index 24.57 01/02/2021 10:27 AM CDT Procedures * LAB RESULTS ORDER(Performed 11/17/2020) * AUDIOLOGY/TYMPANOMETRY ORDER(Performed 05/24/2020) * XR HAND RIGHT 3VW OR MORE(Performed 04/26/2020) Performed for Finger pain, right * IMAGING/RADIOLOGY/XRAY RESULTS ORDER(Performed 04/06/2020) * LAB RESULTS ORDER(Performed 12/25/2019) * URINALYSIS AUTO - POINT OF CARE (AMB) STL(Performed 05/25/2019) Performed for Urinary frequency * CULTURE URINE(Performed 05/25/2019) Performed for Urinary frequency * LIPID PROFILE+GLUCOSE - POINT OF CARE (AMB)(Performed 11/24/2018) Performed for Well adolescent visit * STREP A SCREEN - POINT OF CARE (AMB) STL(Performed 08/22/2018) Performed for Acute non-recurrent maxillary sinusitis * IMAGING/RADIOLOGY/XRAY RESULTS ORDER(Performed 07/10/2018) * VAGINITIS (BV CA TRICH)(Performed 06/16/2018) Performed for Vaginal irritation * CULTURE URINE(Performed 04/18/2018) Performed for Dysuria * URINALYSIS - POINT OF CARE(Performed 04/18/2018) Performed for Dysuria * CULTURE STREP GROUP A(Performed 05/03/2017) * INFLUENZA A+B - POINT OF CARE (AMB)(Performed 04/30/2017) Performed for Acute nonintractable headache, unspecified headache type * IMAGING/RADIOLOGY/XRAY RESULTS ORDER(Performed 11/28/2016) * XR THORACIC SPINE 2VW(Performed 07/17/2016) Performed for Acute midline thoracic back pain * STREP A SCREEN - POINT OF CARE (AMB)(Performed 10/08/2015) Performed for Acute pharyngitis, unspecified etiology * CULTURE THROAT(Performed 12/24/2013) * STREP A SCREEN - POINT OF CARE (AMB)(Performed 07/20/2013) Performed for URI (upper respiratory infection) * INFLUENZA A+B - POINT OF CARE (AMB)(Performed 02/26/2012) Performed for Pneumonia * XR CHEST 2VW(Performed 02/26/2012) Performed for Pneumonia * URINALYSIS - POINT OF CARE(Performed 04/17/2010) Performed for Dysuria * CULTURE AEROBIC+GRAM STAIN(Performed 03/31/2009) Performed for Acute Pharyngitis * STREP A SCREEN - POINT OF CARE (AMB)(Performed 03/31/2009) Performed for Acute Pharyngitis Results * LAB RESULTS ORDER (11/17/2020) Only the most recent of2 resultswithin the time period is included. Scanned Document LAB - THERAPEUTIC DR SAURAV MONITORING ORDERABLES * AUDIOLOGY/TYMPANOMETRY ORDER (05/24/2020 1:50 PM WORT EXTRACTOR) Narrative 05/24/2020 1:50 PM WORT EXTRACTOR Ordered by an unspecified provider. Scanned Document AUDIOLOGY SERVICES O RDERABLES * XR HAND RIGHT 3VW OR MORE (04/26/2020) Anatomical Region Laterality Modality Wrist / Hand Other French Cai DO DIAGNOSTIC IMAG ING ORDERABLES * IMAGING RADIOLOGY XRAY RESULTS ORDER (04/06/2020) Only the most recent of3 resultswithin the time period is included. Anatomical Region Laterality Modality Other Provider Unknown IMAGING * URINALYSIS AUTO - POINT OF CARE (AMB) STL (05/25/2019 4:59 PM CDT) Clarity UA POCT clear Color UA POCT yellow Leukocyte UA - Negative Nitrite UA POCT - Negative Urobilinogen UA 0.2 0.1 - 1.0 Protein UA POCT - Negative pH UA 6.0 5.0 - 8.0 pH units Blood UA - Negative Specific [place] UA POCT 1.030 1.002 - 1.030 Ketone UA - Negative Bilirubin UA POCT - Negative Glucose UA - Negative Expiration Date 05/28/2019 Lot # [id number] Verified Yes Yes Urine URINE / Unknown 05/25/2019 4 :59 PM CDT French Cai DO LAB - POINT OF CARE ORDERABLES * CULTURE URINE (05/25/2019 4:57 PM CDT) Only the most recent of2 resultswithin the time period is included. Pathologist [facility] Urine Culture Routine Final report [facility] ACCOUNT BILL Result 1 [facility] ACCOUNT BILL Comment: Mixed urogenital kirt Less than 10,000 colonies/mL Urine MID-STREAM URINE SPECIMEN / Unknown 05/25/2019 4:57 PM CDT 05/25/2019 Narrative Resulting Agency Comment Lab Testing performed at: [facility] [place] [address] [phone] French Cai DO LAB - MICROBIOL OGY ORDERABLES [facility] ACCOUNT BILL [address] [place] [address] * (ABNORMAL) LIPID PROFILE+GLUCOSE - POINT OF CARE (AMB) (11/24/2018 3:50 PM CDT) Pathologist [facility] QC Verified Yes Yes Cholesterol POCT 136 200 mg/dl HDL POCT 16 mg/dL Triglycerides POCT 83 130 mg/dL LDL 103 130 mg/dl Non HDL Cholesterol POCT 120 145 mg/dL Total Cholesterol/HDL Ratio POCT 8.3(A) 6.0 Glucose 89 70 - 126 mg/dL Blood BLOOD SPECIMEN / Unknown 11/24/2018 3:50 PM CDT French Cai DO LAB - POINT OF CARE ORDERABLES * STREP A SCREEN - POINT OF CARE (AMB) STL (08/22/2018 10:52 AM CDT) Pathologist [facility] Strep A Rapid POCT Negative Negative Strep A Internal Control Present Lot # [id number] Expiration Date 02/07/20 Throat ENTIRE THROAT (SURFACE REGION OF NECK) / Unknown 08/22/2018 10:52 AM CDT French Cai DO LAB - POINT OF CARE ORDERABLES * VAGINITIS (BV CA TRICH) (06/16/2018 12:02 PM CDT) Atopobium vaginae Low - 0 Score [facility] INSURANCE BILL BVAB 2 Low - 0 Score [facility] INSURANCE BILL Megashaera Low - 0 Score [facility] INSURANCE BILL Comment: Calculate total score by adding the 3 individual bacterial vaginosis (BV) marker scores together. Total score is interpreted as follows: Total score 0-1: Indicates the absence of BV. Total score 2: Indeterminate for BV. Additional clinical data should be evaluated to establish a diagnosis. Total score 3-6: Indicates the presence of BV. . This test was developed and its performance characteristics determined by [employer]. It has not been cleared or approved by the Food and Drug Administration. The FDA has determined that such clearance or approval is not necessary. Roshni albicans JIHAN Negative Negative [facility] INSURANCE BILL Roshni glabrata JIHAN Negative Negative [facility] INSURANCE BILL Comment: This test was developed and its performance characteristics determined by [employer]. It has not been cleared or approved by the Food and Drug Administration. The FDA has determined that such clearance or approval is not necessary. Trichomonas vaginalis by JIHAN Negative Negative [facility] INSURANCE BILL Microbiology ENTIRE VAGINA / Unknown 06/16/2018 12:02 PM CDT 06/16/2018 Narrative Resulting Agency Comment [address] [phone] French Cai DO LAB - MICROBIOL OGY ORDERABLES [facility] INSURANCE BILL [address] [place] [address] * URINALYSIS - POINT OF CARE (04/18/2018 3:34 PM WORT EXTRACTOR) Only the most recent of2 resultswithin the time period is included. Clarity UA POCT cloudy Color UA POCT wally Leukocyte UA neg Negative Nitrite UA POCT neg Negative Urobilinogen UA 0.1 0.1 - 1.0 Protein UA POCT +/- Negative pH UA 6.0 5.0 - 8.0 pH units Blood UA neg Negative Specific [place] UA POCT 1.030 1.002 - 1.030 Ketone UA neg Negative Bilirubin UA POCT neg Negative Glucose UA negt Negative Urine URINE / Unknown 04/18/2018 3 :34 PM WORT EXTRACTOR French Cai DO LAB - POINT OF CARE ORDERABLES * CULTURE STREP GROUP A (05/03/2017) Microbiology Provider Unknown LAB - MICROBIOLOGY O RDERABLES * INFLUENZA A+B - POINT OF CARE (AMB) (04/30/2017) Only the most recent of2 resultswithin the time period is included. Influenza A Antigen Rapid Negative Negative Influenza B Antigen Rapid Negative Negative Influenza Internal Control positive NEGATIVE - POSITIVE Influenza Lot Number [id number] Influenza Expiration Date 01/07/2019 Other SPECIMEN FROM NASOPHARYNGEAL STRUCTURE / Unknown 04/30/2017 Hien Mccarthy MD LAB - POINT OF CARE ORDERABLES * XR THORACIC SPINE 2 VW (07/17/2016) Anatomical Region Laterality Modality Spine Other Hien Mccarthy MD DIAGNOSTIC IMAGING O RDERABLES * STREP A SCREEN - POINT OF CARE (AMB) (10/08/2015) Only the most recent of3 resultswithin the time period is included. Strep A Rapid POCT Negative Negative Strep A Internal Control Present Other (qualifier value) ENTIRE THROAT (SURFACE REGION OF NECK) / Unknown 10/08/2015 Hien Mccarthy MD LAB - POINT OF CARE ORDERABLES * CULTURE THROAT (12/24/2013 3:57 PM CDT) Upper Respiratory Culture Final report [facility] INSURANCE BILL Result 1 [facility] INSURANCE BILL Comment:Routine respiratory kirt 12/24/2013 3:57 PM CDT 12/24/2013 10:09 PM CDT Narrative Resulting Agency Comment [address] [phone] Mithc Isbell MD LAB - MICROBIOLOG Y ORDERABLES Performing Organization Address [facility] de Phone Number [facility] INSURANCE BILL * XR CHEST PA AND LATERAL (02/26/2012) Anatomical Region Laterality Modality Chest Other Wilma Beltre MD DIAGNOSTIC IMAGING O RDERABLES * CULTURE ROUTINE (03/31/2009 1:48 PM WORT EXTRACTOR) Aerobic Bacterial Culture Final report [facility] INSURANCE BILL Result 1 [facility] INSURANCE BILL Comment: Routine respiratory kirt Heavy growth ENTIRE PHARYNX / Unknown 03/31/2009 1:48 PM WORT EXTRACTOR 03/31/2009 9:54 PM WORT EXTRACTOR Narrative Resulting Agency Comment [facility] [address] [phone] Wilma Beltre MD LAB - MICROBIOLOGY O RDERABLES Performing Organization Address [facility] Co de Phone Number [facility] INSURANCE BILL
--- OUTSIDE RECORDS SUMMARY | 2024-05-08 08:48 | XMS_ITS | Clinical Summary ---
Author Organization [facility] [employer] Address [address] [place] [address] Care Team Providers Care Brim Flexer Name Role Phone Unavailable Primary Care Provider Unavailabl e Source Comments [facility] [employer],non-owned Affiliates and Associated Physician Practices is amultiple site organization consisting of ambulatory clinics and hospital sitesin [place], [place], [place] and [place]. This disclosure is being madepursuant to the Care Everywhere program and may not contain all information available regarding this patient. 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 Concentration - - Weight 70.6 kg (155 lb 9.6 oz) 01/02/2021 10:27 AM CDT Height 169.5 cm (5' 6.73 ) 01/02/2021 10:27 AM C DT Body Mass Index 24.57 01/02/2021 10:27 AM CDT Plan of Treatment Health Maintenance Due Date Last Done Comments PAP SMEAR 2002 HIV SCREENING 2017 CHLAMYDIA/GONORRHEA SCREENING 2018 MENINGOCOCCAL (Group B) VACC INE (1 of 2 - Standard) 2018 HEPATITIS C SCREENING 08/26/2020 DTAP/TDAP/TD VACCINES (7 - T d or Tdap) 11/03/2023 11/02/2013, 08/25/2007, 05/26/2004, Additional history exists COVID-19 VACCINE (3 - 2023-2 5 season) 2023 07/29/2020, 07/08/2020 INFLUENZA VACCINE (#1) 2023 , 12/15/2019, 11/24/2018, Additional history exists DEPRESSION SCREENING 03/18/2024 ZOSTER VACCINE (1 of 2) 2052 HEPATITIS B VACCINE Completed 07/20/2003, 03/16/2003, 2002 HIB VACCINE Completed 04/11/2004, 02/17, 2002, Additional history exists PNEUMOCOCCAL VACCINE Completed 04/11/2004, 03/16/2003, 2002, Additional history exists HPV VACCINE Completed 11/03/2015, 11/01/2014 MENINGOCOCCAL VACCINE Completed 11/24/2018, 014 Goals Goal Patient Goal Type Associated Problems Recent Progress Patient-Stated? Author Use safety retraint in car Lifestyle On track( 020 1:30 PM CDT) Maira Poole, NOHEMI JODI AVELAR Personal/Family [address] [place] [address]
[2024-05-08 09:16] LABS: Add Urine Microscopic? YES; Appearance Urine Cloudy (Clear); Bacteria Urine 4+ /hpf; Bilirubin Urine Negative (Negative); Blood Urine Negative (Negative); Color Urine Dark Yellow (Yellow); Glucose Urine UA Negative (Negative); Ketones Urine Negative (Negative); Leukocyte Esterase Ur 1+ LEU/UL (Negative); Need Manual Microscopic Reviewed; Nitrate Urine Positive (Negative); Non Pathogenic Casts 0-2; Protein Urine Negative (Negative); RBC Urine 0-2 /hpf (0-2); Specific Grav Ur 1.017 (1.001-1.035); Squamous Epithelial Cell Urine Many /hpf (Few); pH Urine 6.5 (5.0-9.0)
== END 2024-05-08 08:15 | disposition home or self-care (01) ==
PROVIDERS: PCP Nurse Practitioner Family; Visit Provider Nurse Practitioner Family
DX: R30.0 Dysuria (principal)
CPT/HCPCS: 81001